=== PATIENT | female | born 1940 | race Caucasian/White ===

== ENCOUNTER 2018-10-30 05:48 | Day surgery (SDC) | payer MEDICARE, BC ==
[~2018-10-30] VITALS: Ht 160 cm; Wt 63.5 kg
[2018-10-30] VITALS (15 sets, daily range): BP systolic 118–157; BP diastolic 61–93
--- NOTE | 2018-10-30 07:02 | Anethesia Preoperative Eval ---
Anesthesia Pre-op PMH/ROS General Date of Evaluation: Oct 30, 2018 Anesthesiologist: Francisco ASA Score: ASA 3 Mallampati Score Class I : Soft palate, uvula, fauces, pillars visible Class II: Soft palate, uvula, fauces visible Class III: Soft palate, base of uvula visible Class IV: Only hard plate visible Mallampati Classification: Class II Surgeon: Brian Diagnosis: Right knee pain Surgical Procedure: Right knee arthroscopy Anesthesia History: none Family History: no anesthesia problems Allergies: Coded Allergies: PENICILLINS (Verified Allergy, Unknown, 10/29/18) Medications: see eMAR Patient NPO?: Yes NPO Date: Oct 29, 2018 NPO Time: 22:00 Past Medical History Cardiovascular: Reports: other - HLD; Denies: HTN, CAD, NE, valve dz, arrhythmia Pulmonary: Denies: asthma, COPD, YARELI, other Gastrointestinal/Genitourinary: Reports: GERD, other - h/o bladder cancer s/p resection; Denies: CRI, ESRD Neurologic/Psychiatric: Reports: depression/anxiety, other - cluster WISE; Denies: dementia, CVA, TIA Endocrine: Denies: DM, hypothyroidism, steroids, other HEENT: Denies: cataract (L), cataract (R), glaucoma, [place] (L), [place] (R), other Hematology/Immune: Denies: anemia, DVT, bleeding disorder, other Musculoskeletal/Integumentary: Reports: OA; Denies: RA, DJD, DDD, edema, other PSxH Narrative: bladder tumor excision, left foot orif, right knee arthroscopy Anesthesia Pre-op Phys. Exam Physician Exam see chart Constitutional: NAD Cardiovascular: RRR Respiratory: CTA Airway Exam Mallampati Score: Class II MO: full ROM: full Teeth: intact Anesthesia Pre-op A/P Labs see chart Studies Pre-op Studies: EKG - sr Risk Assessment & Plan Assessment: ASA III Plan: GA Status Change Before Surgery: No Pre-Antibiotics Drug: Rebecca Dumont MD Oct 30, 2018 07:02
[2018-10-30] MEDS ORDERED: Clindamycin 600mg 50 ML IV ONE (07:06)
[2018-10-30] MEDS ORDERED: Ropivacaine 5mg/ml Vial 30ml INJ ONE (07:10)
[2018-10-30] MEDS ORDERED: Propofol 200mg/20ml IV ONE (07:25)
[2018-10-30] MEDS ORDERED: Lidocaine 1% MPF 10mg/ml 5ml ONE (07:25)
[2018-10-30] MEDS ORDERED: fentaNYL 100 mcg/2 mL IV ONE (07:25)
[2018-10-30] MEDS ORDERED: Zemuron 50mg/5ml Inj IV ONE (07:28)
[2018-10-30] MEDS ORDERED: LR 1000ml 1,000 ML IVLG SCH (07:35)
[2018-10-30] MEDS ORDERED: LORazepam Inj 2mg/ml 1ml IV PRN (07:45)
[2018-10-30] MEDS ORDERED: Ketorolac 30mg Inj IV PRN (07:45)
[2018-10-30] MEDS ORDERED: fentaNYL 100 mcg/2 mL IV PRN (07:45)
[2018-10-30] MEDS ORDERED: Hydromorphone 0.5mg/0.5ml inj IVP PRN (07:45)
[2018-10-30] MEDS ORDERED: Metoclopramide 10mg/2ml Inj IVP PRN ×2 (07:45→08:15)
[2018-10-30] MEDS ORDERED: DiphenhydrAMINE 50mg/ml Inj IVP PRN (07:45)
--- NOTE | 2018-10-30 07:51 | Pre-Procedure Note/Attestation ---
Pre-Procedure Note/Attestation Complete Prior to Procedure Planned Procedure: right Procedure Narrative: Right knee arthroscopy with arthroscopic assisted fixation of tibial plateau fracture and femoral fracture if needed, Right knee debridment including chondroplasty and partial meniscectomies, etc Indications for Procedure Pre-Operative Diagnosis: Right knee subchondral fracture, OA, and internal derrangement Attestation I attest that I discussed the nature of the procedure; its benefits; risks and complications; and alternatives (and the risks and benefits of such alternatives ), prior to the procedure, with the patient (or the patient's legal human resources hr representative). I attest that, if there was a reasonable possibility of needing a blood transfusion, the patient (or the patient's legal human resources hr representative) was given the [place] [employer] standardized written summary, pursuant to the Lazaro Clarice Blood Safety Act ([place] Health and Safety Code # 1645, as amended). I attest that I re-evaluated the patient just prior to the surgery and that there has been no change in the patient's H&P, except as documented below: Arjun Torres MD Oct 30, 2018 07:51
[2018-10-30] MEDS ORDERED: lipitor PO (07:55)
--- NOTE | 2018-10-30 07:55 | Operative Note - PDOC ---
Operative Note Operative Note Date of Operation/Procedure: Oct 30, 2018 Chief Complaint: Severe right knee riley when ambulating Pre-op Diagnosis: Right knee subchondral fracture, OA, and internal derrangement Procedure: Right knee arthoscopy with debridement, chondroplasty, meniscectomies, and assisted subchondral fracture fixation Post-op Diagnosis: Same Post-op Diagnosis: same as pre-op plus Operative Findings: consistent w/pre-op dx studies Surgeon: Abdirashid Torres MD Anesthesia: general Specimen: none Complications: none Condition: stable Estimated Blood Loss: minimal Drains: none Tourniquet time: 0 Implant(s) used?: Yes Indications for Procedure Patient has failed conservative measures and has a subchondral fracture which is ammenable to fixation. Patient would like to proceed with procedure prior to consideration of more invasive surgery, eg knee arthroplasty Description of Procedure See Dictation Arjun Torres MD Oct 30, 2018 07:55
[2018-10-30] MEDS ORDERED: TORSEMIDE20 MG ORAL (07:56)
[2018-10-30] MEDS ORDERED: Sterile Water Irrig 1000ml IRRIG ONE (08:00)
[2018-10-30] MEDS ORDERED: LR 1000ml ONE (08:00)
[2018-10-30] MEDS ORDERED: NS Irrig 4000ml IRRIG ONE ×3 (08:00→08:21)
--- NOTE | 2018-10-30 09:58 | Immediate Post-Op Evaluation ---
Immediate Post-Op Evalulation Immediate Post-Op Evalulation Procedure: Right knee arthrosocpy with medial and lateral meniscectomy Date of Evaluation: Oct 30, 2018 Time of Evaluation: 10:00 IV Fluids: 800 Blood Products: 0 Estimated Blood Loss: 10 Urinary Output: 0 Blood Pressure Systolic: 118 Blood Pressure Diastolic: 61 Pulse Rate: 63 Respiratory Rate: 16 O2 Sat by Pulse Oximetry: 96 Temperature (Fahrenheit): 98.8 Pain Score (1-10): 0 Nausea: No Vomiting: No Complications 0 Patient Status: awake, reacts, patent, none Hydration Status: adequate Drug: clindamycin 600mg Given Within 1 Hr of Incision: Yes Time Given: 08:00 Rebecca Levy MD Oct 30, 2018 09:58
--- NOTE | 2018-10-30 09:59 | 48 Hour Post Anesthesia Eval ---
Post Anesthesia Evaluation Procedure: Right knee arthrosocpy with medial and lateral meniscectomy Date of Evaluation: Oct 30, 2018 Airway: patent Nausea: No Vomiting: No Pain Intensity: 0 Hydration Status: adequate Cardiopulmonary Status: at baseline Mental Status/LOC: patient returned to baseline Post-Anesthesia Complications: 0 Follow-up care needed: ready to discharge Rebecca Levy MD Oct 30, 2018 09:59
[2018-10-30] MEDS ORDERED: CRUTCH1 EACH MC (11:03)
--- NOTE | 2018-10-30 11:06 | Discharge Instructions ---
Discharge Instructions Discharge Instructions Follow up with: Dr. Torres in 7-10 days Diet: regular Resume Normal Activity?: Yes Activity: resume normal activities, as tolerated, okay to shower, up w/ crutches Pneumonia Vaccine: vaccine not indicated Influenza Vaccine (Jul to Dec): vaccine not indicated Follow Up Orders F/U 7-10 days call office if any questions/concerns Return to Work/School on: Nov 12, 2018 Special Instructions Use ice machine as much as possible, start bending knee on POD 2, Remove complete dressing tomorrow For Surgical Patients Elevate: right leg with pillow May shower: Yes Contact your physician for: yellowish discharge in the op. site For Congestive Heart Failure Reminder Report to your physician any weight gain of 5 pounds or more in one week. Arjun Torres MD Oct 30, 2018 11:06
--- NOTE | 2018-10-30 12:07 | Diagnostic Imaging Report ---
Indication: Intraoperative imaging 2 views of the right knee were obtained. Findings: Fluoroscopic views showing a needle projected over the medial compartment of the knee on the single fluoroscopic views. IMPRESSION: Intraoperative imaging
--- NOTE | 2018-11-01 21:30 | Operative Note - Dictated ---
DATE OF OPERATION: 10/31/2018 PREOPERATIVE DIAGNOSIS: Right knee internal derangement with medial meniscus tear and subchondral fractures of weightbearing portion of the medial tibial plateau, small portion of the medial femoral condyle. PROCEDURE PERFORMED: 1. Right knee arthroscopy with debridement chondroplasty and partial meniscectomy of medial compartment and partial meniscectomy in the lateral compartment and chondroplasty of the patellofemoral compartment. 2. Arthroscopically assisted fixation of tibial plateau fracture using the AccuFill subchondroplasty system and fixation of medial femoral condyle, subchondral fracture using AccuFill subchondral system. SURGEON: Arjun Torres M.D. CHEMICAL OPERATIONS AND TRAINING: None. ANESTHESIA: General. DRAINS: None. COMPLICATIONS: None. ESTIMATED BLOOD LOSS: Minimal. INDICATION FOR PROCEDURE: The patient developed severe knee arthritis and later sustained knee injury causing subchondral fracture. She presented for treatment. It was felt the patient would benefit from fracture fixation. The risks, benefits and alternatives to surgery were discussed with the patient. The patient understood the risks and wished to proceed. DESCRIPTION OF PROCEDURE: The patient was identified by myself. The right lower extremity was marked as the correct operative site. The patient was then taken to the operating room and placed in supine position, underwent adequate anesthesia. Portals were created after the patient was given Ancef 2 g. Arthroscopy was performed with the above findings noted. Debridement of medial and lateral meniscus was then performed. All loose debris were evacuated and the chondroplasty was performed. Next, attention was turned to the medial tibial plateau in the center portion. Subchondral fracture was identified and then fluoroscopy was brought in. Guide pins were then placed and AccuFill system was used to support the subchondral plate. Next, attention was turned to the medial femoral condyle where similar procedure was performed. There was no extravasation into the joint penetration. The scope was withdrawn after all debris was removed. Skin incisions were closed in sterile fashion. Dry sterile dressings were then applied. The patient was taken to PACU. There were no complications. Arjun Torres M.D. DR: Troy JOB#: [id number] CC:
== END 2018-10-30 14:00 | disposition home or self-care (01) ==
LOC: SUR 05:48
DX: M23.91 Unspecified internal derangement of right knee (principal); M23.203 Derangement of unspecified medial meniscus due to old tear or injury, right knee; S82.141A Displaced bicondylar fracture of right tibia, initial encounter for closed fracture; E78.5 Hyperlipidemia, unspecified; K21.9 Gastro-esophageal reflux disease without esophagitis; F32.9 Major depressive disorder, single episode, unspecified; F41.9 Anxiety disorder, unspecified; Z88.0 Allergy status to penicillin
CPT/HCPCS: 76000; 94003; 94150; J2405; J2765; S0077